=== PATIENT | female | born 1940 | race Caucasian/White ===

== ENCOUNTER 2018-04-21 11:12 | Emergency (ER) | payer MEDICARE ==
[~2018-04-21] VITALS: Ht 160 cm; Wt 73.7 kg
[2018-04-21] MEDS ORDERED: KETOROLAC 30 MG/1 ML IM ONE (12:00)
[2018-04-21] MEDS ORDERED: KETOROLAC 30 MG/1 ML ONE (12:55)
--- NOTE | 2018-04-21 13:14 | NUR ---
Patient/Caregiver given discharge instructions and they have confirmed that they understand the instructions. Patient ambulatory with steady gait. Pt. has her RX. CMS checks remain intact.
[2018-04-21 13:15] VITALS: BP 165/75
== END 2018-04-21 13:17 | disposition home or self-care (01) ==
LOC: ED 12:25
DX: S76.102A Unspecified injury of left quadriceps muscle, fascia and tendon, initial encounter (principal); I10 Essential (primary) hypertension; I48.91 Unspecified atrial fibrillation; Z96.641 Presence of right artificial hip joint; X50.9XXA Other and unspecified overexertion or strenuous movements or postures, initial encounter; Y93.89 Activity, other specified; Y92.89 Other specified places as the place of occurrence of the external cause; Y99.8 Other external cause status
CPT/HCPCS: 29505; 73564; 93971; 96372; 99284; J1885

== ENCOUNTER 2018-07-03 01:24 | Inpatient (IN) | payer MEDICARE ==
[~2018-07-03] VITALS: Ht 161.3 cm; Wt 77.5 kg
[2018-07-03] MEDS ORDERED: ETOMIDATE 20 MG/10 ML ONE ×2 (01:59→04:47)
[2018-07-03] MEDS ORDERED: ETOMIDATE 20 MG/10 ML IVPush ONE (02:00)
[2018-07-03] MEDS ORDERED: FENTANYL PF 100 MCG/2ML IVPush ONE (02:00)
[2018-07-03] MEDS ORDERED: FENTANYL PF 100 MCG/2ML ONE (02:02)
[2018-07-03 02:08] LABS: BASOPHILS # (AUTO) 0.02 x10^3/uL (0-0.1); BASOPHILS % (AUTO) 0 % (0-1); EOSINOPHILS # (AUTO) 0.12 x10^3/uL (0-0.4); EOSINOPHILS % (AUTO) 2 % (1-7); LYMPHOCYTES # (AUTO) 1.44 x10^3/uL (1-3.4); LYMPHOCYTES % (AUTO) 26 % (22-44); MD NO; MEAN CORPUSCULAR HEMOGLOBIN 30.1 pg (27.0-34.8); MEAN CORPUSCULAR HGB CONC 33.5 g/dL (32.4-35.8); MEAN CORPUSCULAR VOLUME 89.7 fL (80-100); MEAN PLATELET VOLUME 9.7 fL (7.4-10.4); MONOCYTES # (AUTO) 0.79 x10^3/uL (0.2-0.8); MONOCYTES % (AUTO) 14 % (2-9); NEUTROPHILS # (AUTO) 3.14 x10^3/uL (1.8-6.8); NEUTROPHILS % (AUTO) 57 % (42-75); PLATELET COUNT 296 x10^3/uL (130-400); RED BLOOD COUNT 4.39 x10^6/uL (3.82-5.3); RED CELL DISTRIBUTION WIDTH 14.3 % (9.6-15.2)
[2018-07-03 02:18] LABS: INTERNATIONAL NORMALIZED RATIO 1.06 (0.93-1.1); PROTHROMBIN TIME 11.1 Seconds (9.6-11.5)
[2018-07-03 02:21] LABS: ALBUMIN 3.3 g/dL (3.4-5.0); ANION GAP 9 mmol/L (5-15); CALCIUM 8.5 mg/dL (8.5-10.1); CHLORIDE 109 mmol/L (98-107); CREATININE 0.93 mg/dL (0.55-1.02)
[2018-07-03 02:25] LABS: FREE T4 (FREE THYROXINE) 1.67 ng/dL (0.76-1.46); TROPONIN I 0.037 ng/mL (0.000-0.045)
--- NOTE | 2018-07-03 02:55 | NUR ---
PT. FULLY RECOVERED FROM PROCEDURAL SEDATION; CHARTING CONTINUED HERE.
[2018-07-03] MEDS ORDERED: AMIODARONE 150 MG in DEXTROSE 5% 100 ML IV ONE (03:00)
[2018-07-03] MEDS ORDERED: AMIODARONE 900 MG in DEXTROSE 5% 482 ML IV PRN (03:00)
[2018-07-03] MEDS ORDERED: FURO20TA3 PO (03:12)
[2018-07-03] MEDS ORDERED: APIX5TAB PO (03:12)
[2018-07-03] MEDS ORDERED: AMIO200T42 PO ×2 (03:12→16:51)
[2018-07-03] MEDS ORDERED: CARV12.52 PO (03:12)
[2018-07-03] MEDS ORDERED: ZOLP5TAB6 PO (03:12)
[2018-07-03] MEDS ORDERED: LOSA100T14 PO (03:12)
[2018-07-03] MEDS ORDERED: POTA10CA PO (03:12)
[2018-07-03] MEDS ORDERED: LEVO125T5 PO (03:12)
--- NOTE | 2018-07-03 03:12 | NUR ---
OLAYINKA AT FOR REPEAT EKG. NSR WITH RATE OF 70'S NOTED ON MONITOR UPON RECHECK. HAD CALLED PHARMACY ABOUT AMIO DRIP; PER DR. LOPEZ WILL HOLD OFF ON THIS FOR NOW.
[2018-07-03] MEDS ORDERED: PLEASE ENTER HEIGHT MC SCH (03:30)
[2018-07-03] MEDS ORDERED: FILTER 0.22 MICRON IV ONE (03:30)
--- NOTE | 2018-07-03 03:50 | NUR ---
PT. ASSISTED TO BS COMMODE; PT. STEADY ON FEET AND REQUIRED ONLY STAND BY ASSISTANCE. PT. AWAITNG BED UPSTAIRS. PT. AWARE OF/AGREEABLE TO PLAN FOR ADMISSION. PT. REMAINS IN NSR ON MONITOR. CALL LIGHT IN REACH. ALL SAFETY MEASURES OBSERVED.
[2018-07-03] MEDS ORDERED: MAGNESIUM SULFATE PMX 2GM/50ML 50 ML IV ONE (04:00)
--- NOTE | 2018-07-03 04:13 | NUR ---
MED REQUEST SENT TO PHARMACY.
[2018-07-03] MEDS ORDERED: MAGNESIUM SULFATE PMX 2GM/50ML 50 ML ONE (04:16)
--- NOTE | 2018-07-03 04:38 | NUR ---
[facility] IN TO EVAL PT. FOR ADMISSION. VS UPDATED. MAG INFUSING PER ORDER. ALL MONITORS REMAIN IN PLACE. NSR ON MONITOR. ALL SAFETY MEASURS OBSERVED. CALL LIGHT IN REACH.
--- NOTE | 2018-07-03 04:53 | NUR ---
REPORT TO FRANKIE WADE. FLOOR READY FOR PT. TRANSPORT.
[2018-07-03] MEDS ORDERED: NITROGLYCERIN 0.4 MG/SPRAY SL PRN (05:30)
[2018-07-03] MEDS ORDERED: NITROGLYCERIN 0.4 MG BOTTLE (25 TABS) SL PRN (05:30)
[2018-07-03] MEDS ORDERED: POTASSIUM CHLORIDE 20 MEQ TAB.ER.PRT PO ONE (05:30)
[2018-07-03] MEDS ORDERED: LABETALOL 5MG/ML, 20ML IVPush PRN (05:30)
[2018-07-03] MEDS ORDERED: LABETALOL 5 MG/ML SYRINGE IVPush PRN (05:30)
[2018-07-03 05:42] VITALS: BP 125/73
--- NOTE | 2018-07-03 05:45 | NUR ---
20MG VILE OF ETOMADATE WALKED BACK TO PHARMACY OMNICELL WAS FULL WHEN THIS RN WENT TO RETURN UNUSED VILE AFTER PROCEDURE. 4MG(2ML) OF THE OTHER 20MG VILE WASTED WITH JUANA Jackson RN.
[2018-07-03] MEDS ORDERED: LEVOTHYROXINE 125 MCG TABLET PO SCH (06:00)
[2018-07-03 06:56] LABS: TROPONIN I 0.298 ng/mL (0.000-0.045)
[2018-07-03 07:59] VITALS: BP 136/72
[2018-07-03] MEDS ORDERED: OMEP-110 PO (08:45)
[2018-07-03] MEDS ORDERED: FLUO20CA19 PO (08:45)
[2018-07-03] MEDS ORDERED: FUROSEMIDE 40 MG TABLET PO SCH (09:00)
[2018-07-03] MEDS ORDERED: AMIODARONE 200 MG TABLET PO SCH (09:00)
[2018-07-03] MEDS ORDERED: CARVEDILOL 12.5 MG TABLET PO SCH (09:00)
[2018-07-03] MEDS ORDERED: LOSARTAN 50MG TABLET PO SCH (09:00)
[2018-07-03] MEDS ORDERED: APIXABAN 5 MG TABLET PO SCH (09:00)
[2018-07-03] MEDS ORDERED: POTASSIUM CHLORIDE 10 MEQ TABLET.ER PO SCH (09:00)
[2018-07-03 14:00] VITALS: BP 134/70
[2018-07-03 16:11] LABS: TROPONIN I 0.339 ng/mL (0.000-0.045)
[2018-07-03] MEDS ORDERED: ACETAMINOPHEN 325 MG TABLET PO ONE (17:00)
[2018-07-03] MEDS ORDERED: ZOLPIDEM 5MG TABLET PO SCH (21:00)
== END 2018-07-03 18:32 | disposition home or self-care (01) | DRG 308 ==
LOC: ED 01:34 → EDIP 03:41 → 5SO 05:06
PROVIDERS: ADMIT Family Medicine; ATTEND Family Medicine
PROC: 5A2204Z Restoration of Cardiac Rhythm, Single (ICD-10-PCS; principal; 2018-07-03)
DX: I48.91 Unspecified atrial fibrillation (principal); I50.33 Acute on chronic diastolic (congestive) heart failure; I11.0 Hypertensive heart disease with heart failure; E03.9 Hypothyroidism, unspecified; E78.5 Hyperlipidemia, unspecified; I45.4 Nonspecific intraventricular block; M19.90 Unspecified osteoarthritis, unspecified site; E83.42 Hypomagnesemia; E87.6 Hypokalemia; F32.9 Major depressive disorder, single episode, unspecified; I25.2 Old myocardial infarction; Z79.01 Long term (current) use of anticoagulants; Z79.899 Other long term (current) drug therapy; Z85.3 Personal history of malignant neoplasm of breast; Z95.5 Presence of coronary angioplasty implant and graft
CPT/HCPCS: 36415; 71045; 80048; 82040; 83735; 83880; 84439; 84443; 84484; 85025; 85610; 92960; 93005; 96374; 96375; 99152; 99291; G0378; J3010; J3475

== ENCOUNTER 2018-07-17 08:51 | Emergency (ER) | payer MEDICARE ==
[~2018-07-17] VITALS: Ht 160 cm; Wt 72.8 kg
[~2018-07-17 08:51] MED LIST: AMIO200T42 PO; APIX5TAB PO; CARV12.52 PO; FLUO20CA19 PO; FURO20TA3 PO; LEVO125T5 PO; LOSA100T14 PO; OMEP-110 PO; POTA10CA PO; ZOLP5TAB6 PO
--- NOTE | 2018-07-17 09:10 | NUR ---
CONTACT WITH PT: 78 YR OLD FEMALE HERE WITH C/O "I FELT LIKE I HAD AN ATTACK OF AFIB THIS AM. WAS HERE 2 WEEKS AGO FOR AFIB. I COULD FEEL IT GOING WACKO, SWEAT, NAUSEA, LIGHT HEADED." CURRENTLY NOT FEELING THAT BAD" AFIB PER MONITOR. AUTO BP, PULSE OX IN PLACE. PTS SON AT BEDSIDE.
[2018-07-17] MEDS ORDERED: LORA0.5T PO (09:26)
[2018-07-17] MEDS ORDERED: PROPOFOL 10 MG/ML, 20ML ONE (09:50)
--- NOTE | 2018-07-17 10:09 | NUR ---
SET PT UP FOR CARDIOVERSION. PADS ON, CRASH CART IN ROOM. DISCUSSED WITH DR. QUINTANA READY FOR PROCEDURE
[2018-07-17] MEDS ORDERED: SACU1TAB MT (10:13)
[2018-07-17 10:18] LABS: MEAN CORPUSCULAR HEMOGLOBIN 29.3 pg (27.0-34.8); MEAN CORPUSCULAR HGB CONC 32.8 g/dL (32.4-35.8); MEAN CORPUSCULAR VOLUME 89.3 fL (80-100); MEAN PLATELET VOLUME 9.8 fL (7.4-10.4); PLATELET COUNT 317 x10^3/uL (130-400); RED BLOOD COUNT 4.62 x10^6/uL (3.82-5.3); RED CELL DISTRIBUTION WIDTH 14.6 % (9.6-15.2)
[2018-07-17 10:23] LABS: ALANINE AMINOTRANSFERASE 36 U/L (12-78); ALBUMIN 3.3 g/dL (3.4-5.0); ANION GAP 6 mmol/L (5-15); CALCIUM 8.8 mg/dL (8.5-10.1); CHLORIDE 105 mmol/L (98-107); INTERNATIONAL NORMALIZED RATIO 1.02 (0.93-1.1); PROTHROMBIN TIME 10.7 Seconds (9.6-11.5)
[2018-07-17 10:27] LABS: ALKALINE PHOSPHATASE 91 U/L (45-117); TOTAL PROTEIN 6.9 g/dL (6.4-8.2); TROPONIN I < 0.015 ng/mL (0.000-0.045)
--- NOTE | 2018-07-17 10:35 | NUR ---
UP TO COMMODE, BACK TO BED. VERBALIZED NO NEEDS AT THIS TIME
[2018-07-17 10:42] LABS: BASOPHILS # (AUTO) 0.02 x10^3/uL (0-0.1); BASOPHILS % (AUTO) 0 % (0-1); EOSINOPHILS % (AUTO) 2 % (1-7); LYMPHOCYTES # (AUTO) 1.19 x10^3/uL (1-3.4); LYMPHOCYTES % (AUTO) 23 % (22-44); MD SCAN; MONOCYTES # (AUTO) 0.76 x10^3/uL (0.2-0.8); MONOCYTES % (AUTO) 14 % (2-9); NEUTROPHILS # (AUTO) 3.23 x10^3/uL (1.8-6.8); NEUTROPHILS % (AUTO) 61 % (42-75)
--- NOTE | 2018-07-17 10:50 | NUR ---
CARDIOVERSION COMPLETED, PLEASE SEE INTRAPROCEDURAL SEDATION.
[2018-07-17] MEDS ORDERED: SODIUM CHLORIDE FLUSH 10ML SYR IVF ONE (11:00)
--- NOTE | 2018-07-17 11:08 | NUR ---
PT SLEEPING, O2 AT 2LNC, 96%, CARDIAC MONTIOR ON HR REG AT 54-56.
[2018-07-17 12:04] VITALS: BP 145/69
--- NOTE | 2018-07-17 12:04 | NUR ---
Patient/Caregiver given discharge instructions and they have confirmed that they understand the instructions. Patient ambulatory with steady gait.
== END 2018-07-17 12:06 | disposition home or self-care (01) ==
LOC: ED 10:06
DX: I48.0 Paroxysmal atrial fibrillation (principal); E03.9 Hypothyroidism, unspecified; I50.9 Heart failure, unspecified; E78.5 Hyperlipidemia, unspecified; I11.0 Hypertensive heart disease with heart failure
CPT/HCPCS: 36415; 80053; 83605; 84443; 84484; 85025; 85610; 85730; 92960; 93005; 99285

== ENCOUNTER 2018-09-19 14:04 | Inpatient (IN) | payer MEDICARE ==
[~2018-09-19] VITALS: Ht 160 cm; Wt 72.1 kg
[~2018-09-19 14:04] MED LIST changes: +LORA0.5T PO; +SACU1TAB MT
--- NOTE | 2018-09-19 14:35 | NUR ---
pt to room at this time. pt given gown
--- NOTE | 2018-09-19 14:50 | NUR ---
PT WITH C/O "FEELING SICK WITH CP ALL DAY YESTERDAY. I WAS JUST SO SICK I LAID IN BED ALL DAY." PT DENIES CP AT THIS TIME. PT STATES SHE "JUST FEELS SO WEAK." PER PT REPORT, SHE HAS BEEN SLEEPING UP RIGHT THE LAST FEW NIGHTS. DR COLEMAN AT BEDSIDE TO EXAMINE PT. ATICIPATE ADMIT TO HOSPITAL. PT DOES NOT WISH TO BE ADMITTED, STATES "OH PLEASE NO". PT ON CARDIAC MONTIOR, NIBP, CONTINUOUS PULSE OX. EKG COMPLETED. PT DENIES N/V, MUNOZ, CP AT THIS TIME.
[2018-09-19 15:01] LABS: BASOPHILS # (AUTO) 0.02 x10^3/uL (0-0.1); BASOPHILS % (AUTO) 0 % (0-1); EOSINOPHILS # (AUTO) 0.12 x10^3/uL (0-0.4); EOSINOPHILS % (AUTO) 2 % (1-7); LYMPHOCYTES # (AUTO) 1.35 x10^3/uL (1-3.4); LYMPHOCYTES % (AUTO) 21 % (22-44); MD NO; MEAN CORPUSCULAR HEMOGLOBIN 29.5 pg (27.0-34.8); MEAN CORPUSCULAR HGB CONC 32.2 g/dL (32.4-35.8); MEAN CORPUSCULAR VOLUME 91.6 fL (80-100); MEAN PLATELET VOLUME 8.9 fL (7.4-10.4); MONOCYTES # (AUTO) 0.73 x10^3/uL (0.2-0.8); MONOCYTES % (AUTO) 11 % (2-9); NEUTROPHILS # (AUTO) 4.32 x10^3/uL (1.8-6.8); NEUTROPHILS % (AUTO) 66 % (42-75); PLATELET COUNT 312 x10^3/uL (130-400); RED BLOOD COUNT 4.46 x10^6/uL (3.82-5.3); RED CELL DISTRIBUTION WIDTH 14.6 % (9.6-15.2)
[2018-09-19 15:10] LABS: ANION GAP 7 mmol/L (5-15); CALCIUM 8.8 mg/dL (8.5-10.1); CHLORIDE 103 mmol/L (98-107); CREATININE 0.77 mg/dL (0.55-1.02)
[2018-09-19 15:11] LABS: ALBUMIN 3.3 g/dL (3.4-5.0)
--- NOTE | 2018-09-19 15:24 | NUR ---
PIV STARTED BY TURKEY PINNER, NO FURTHER NEEDS AT THIS TIME. AWAITING ADMIT
[2018-09-19] MEDS ORDERED: LEVO100T5 PO (16:19)
--- NOTE | 2018-09-19 16:20 | NUR ---
PT REQUESTING FOR ME TO CALL HER SON JUAQUIN TO UPDATE ON PT CONDITION. NUMBER RECIEVED FROM PT, WILL CALL TO UPDATE SON. NO OTHER NEEDS AT THIS TIME.
[2018-09-19] MEDS ORDERED: hydrALAzine 20 MG/ML, 1ML IV PRN (17:00)
[2018-09-19] MEDS ORDERED: LORazepam 0.5MG TABLET PO PRN (17:00)
[2018-09-19] MEDS ORDERED: MAALOX/HYOSCYAMINE/LIDOCAINE 45 ML BTL PO PRN (17:00)
[2018-09-19 17:17] LABS: ALBUMIN 3.4 g/dL (3.4-5.0); BILIRUBIN, DIRECT 0.1 mg/dL (0.1-0.2)
[2018-09-19 17:26] LABS: BILIRUBIN,INDIRECT 0.2 mg/dL (0.0-2.0); BILIRUBIN,TOTAL 0.3 mg/dL (0.2-1.0); THYROID STIMULATING HORMONE 0.379 mIU/L (0.358-3.740); TOTAL PROTEIN 7.6 g/dL (6.4-8.2)
[2018-09-19] MEDS ORDERED: ONDANSETRON 2MG/ML, 2ML IVPush PRN (17:30)
[2018-09-19] MEDS ORDERED: NITROGLYCERIN 0.4 MG BOTTLE (25 TABS) SL PRN (17:30)
[2018-09-19] MEDS ORDERED: NITROGLYCERIN 0.4 MG/SPRAY SL PRN (17:30)
[2018-09-19] MEDS ORDERED: ACETAMINOPHEN 325 MG TABLET PO PRN (17:30)
[2018-09-19] MEDS ORDERED: morphine SULFATE 10 MG/ML, 1ML IVPush PRN (17:30)
[2018-09-19] MEDS ORDERED: ONDANSETRON ODT 4 MG PO PRN (17:30)
[2018-09-19] MEDS ORDERED: DOCUSATE 100 MG CAPSULE PO PRN (17:30)
--- NOTE | 2018-09-19 18:23 | NUR ---
PT REQUESTING FOOD, WILL CALL [employer] TO GET A TRAY. PT ANXIOUS ABOUT ADMISSION TO FLOOR NO ROOM AVAILABLE YET. WILL UPDATE PT ROOM IS AVAILABLE, NO OTHER COMPLAINTS AT THIS TIME.
--- NOTE | 2018-09-19 18:29 | NUR ---
DIET TRAY ORDERED
--- NOTE | 2018-09-19 18:46 | NUR ---
REPORT GIVEN TO RAY DAVID
--- NOTE | 2018-09-19 18:48 | NUR ---
REPORT RECEIVED FROM [facility]TE/LEON DAVID.
--- NOTE | 2018-09-19 19:06 | NUR ---
PT'S SON'S NUMBER [phone]
--- NOTE | 2018-09-19 19:35 | NUR ---
pt provided meal tray at this time.
--- NOTE | 2018-09-19 19:45 | NUR ---
report given to mehran hernandez. all questions answered.
[2018-09-19] MEDS ORDERED: ZOLPIDEM 5MG TABLET PO SCH (21:00)
[2018-09-19] MEDS ORDERED: FAMOTIDINE 20 MG TABLET PO SCH (21:00)
[2018-09-19] MEDS: FLUOXETINE HCL 20 MG CAPSULE PO SCH (21:12)
[2018-09-19] MEDS: PANTOPROZOLE 40MG TABLET PO SCH (21:12)
[2018-09-19] MEDS: FUROSEMIDE 20 MG TABLET PO SCH (21:12)
[2018-09-19 21:17] VITALS: BP 162/75
[2018-09-19 22:08] LABS: MICROSCOPIC NOT IND
[2018-09-19 22:12] LABS: CULTURE INDICATED? NO
[2018-09-20 02:29] VITALS: BP 163/69
[2018-09-20 05:32] LABS: BASOPHILS # (AUTO) 0.03 x10^3/uL (0-0.1); BASOPHILS % (AUTO) 1 % (0-1); EOSINOPHILS # (AUTO) 0.18 x10^3/uL (0-0.4); EOSINOPHILS % (AUTO) 4 % (1-7); LYMPHOCYTES # (AUTO) 1.26 x10^3/uL (1-3.4); LYMPHOCYTES % (AUTO) 27 % (22-44); MD NO; MEAN CORPUSCULAR HEMOGLOBIN 29.4 pg (27.0-34.8); MEAN CORPUSCULAR HGB CONC 32.4 g/dL (32.4-35.8); MEAN CORPUSCULAR VOLUME 90.8 fL (80-100); MONOCYTES % (AUTO) 15 % (2-9); NEUTROPHILS # (AUTO) 2.46 x10^3/uL (1.8-6.8); NEUTROPHILS % (AUTO) 53 % (42-75); PLATELET COUNT 307 x10^3/uL (130-400); RED CELL DISTRIBUTION WIDTH 14.6 % (9.6-15.2)
[2018-09-20 05:44] LABS: ALBUMIN 3.1 g/dL (3.4-5.0); ANION GAP 7 mmol/L (5-15); CALCIUM 8.7 mg/dL (8.5-10.1); CHLORIDE 105 mmol/L (98-107)
[2018-09-20 05:47] LABS: ALANINE AMINOTRANSFERASE 24 U/L (12-78); ALKALINE PHOSPHATASE 87 U/L (45-117); BILIRUBIN,TOTAL 0.7 mg/dL (0.2-1.0); CHOLESTEROL, TOTAL 255 mg/dL (140-239); CREATININE 0.76 mg/dL (0.55-1.02); HDL CHOL % 20 % (28-40); HDL CHOLESTEROL (DIRECT) 51 mg/dL (40-60); LDL CHOLESTEROL,CALCULATED 192 mg/dL (54-169); LDL/HDL RATIO 3.8 (0.5-3.0); TOTAL PROTEIN 7.1 g/dL (6.4-8.2); TRIGLYCERIDES 62 mg/dL (50-200); VLDL CHOLESTEROL 12 mg/dL (0-25)
[2018-09-20] MEDS ORDERED: ASPIRIN 81 MG TABLET EC PO SCH (06:00)
[2018-09-20 06:31] VITALS: BP 158/68
[2018-09-20] MEDS ORDERED: AMIODARONE 200 MG TABLET PO SCH (09:00)
[2018-09-20] MEDS ORDERED: SACUBITRIL/VALSARTAN 24MG-26MG TAB PO SCH (09:00)
[2018-09-20] MEDS ORDERED: LEVOTHYROXINE 100 MCG TABLET PO SCH (09:00)
[2018-09-20] MEDS ORDERED: CARVEDILOL 12.5 MG TABLET PO SCH (09:00)
[2018-09-20] MEDS ORDERED: APIXABAN 5 MG TABLET PO SCH (09:00)
[2018-09-20] MEDS ORDERED: POTASSIUM CHLORIDE 10 MEQ TABLET.ER PO SCH (09:00)
[2018-09-20] MEDS: FLUOXETINE HCL 20 MG CAPSULE PO SCH (09:13)
[2018-09-20] MEDS: PANTOPROZOLE 40MG TABLET PO SCH (09:13)
[2018-09-20] MEDS: FUROSEMIDE 20 MG TABLET PO SCH (09:13)
[2018-09-20] MEDS ORDERED: SUCR1TAB33 PO (09:25)
[2018-09-20] MEDS ORDERED: ONDA4TAB13 PO (09:25)
[2018-09-20] MEDS ORDERED: OMEP-110 PO (09:25)
== END 2018-09-20 13:16 | disposition home or self-care (01) | DRG 392 ==
LOC: ED 15:58 → EDIP 15:59 → ED 16:00 → 5SO 19:59 → DCLOUNGE 09-20 12:55
PROVIDERS: ADMIT Internal Medicine; ATTEND Internal Medicine
DX: K21.9 Gastro-esophageal reflux disease without esophagitis (principal); E03.9 Hypothyroidism, unspecified; E78.5 Hyperlipidemia, unspecified; I11.0 Hypertensive heart disease with heart failure; I48.91 Unspecified atrial fibrillation; I50.9 Heart failure, unspecified; Z79.01 Long term (current) use of anticoagulants
CPT/HCPCS: 0399T; 36415; 71045; 76700; 80048; 80053; 80061; 80076; 81003; 82040; 83690; 83735; 83880; 84443; 84484; 85025; 93005; 93306; 99285; G0378

== ENCOUNTER 2018-11-05 09:43 | Outpatient (CLI) | payer MEDICARE | END 2018-11-05 23:59 | disposition home or self-care (01) | LOC: CFH 09:43 | PROVIDERS: ATTEND Nurse Practitioner Family | DX: N64.4 Mastodynia (principal) | CPT/HCPCS: 77065; G0279 ==

== ENCOUNTER 2019-09-15 10:20 | Outpatient (CLI) | payer MEDICARE ==
[~2019-09-15 10:20] MED LIST changes: +LEVO100T5 PO; +ONDA4TAB13 PO; +SUCR1TAB33 PO
== END 2019-09-15 23:59 | disposition home or self-care (01) ==
LOC: CFH 10:20
PROVIDERS: ATTEND Internal Medicine Cardiovascular Disease
DX: Z51.81 Encounter for therapeutic drug level monitoring (principal); E03.9 Hypothyroidism, unspecified; E78.00 Pure hypercholesterolemia, unspecified; I34.0 Nonrheumatic mitral (valve) insufficiency; I48.0 Paroxysmal atrial fibrillation; I42.9 Cardiomyopathy, unspecified; I50.22 Chronic systolic (congestive) heart failure; I11.0 Hypertensive heart disease with heart failure; Z79.01 Long term (current) use of anticoagulants
CPT/HCPCS: 71046

== ENCOUNTER → 2019-10-29 | Outpatient (CLI) | payer MEDICARE ==
[~2019-10-29] MED LIST changes: +REGADENOSON 0.4 MG/5 ML SYRINGE ONE
== END | disposition home or self-care (01) ==
LOC: CFH 07:08
PROVIDERS: ATTEND Internal Medicine Cardiovascular Disease
DX: I08.8 Other rheumatic multiple valve diseases (principal); I42.9 Cardiomyopathy, unspecified; I10 Essential (primary) hypertension; I48.91 Unspecified atrial fibrillation
CPT/HCPCS: 78452; 93017; 93306; A9502; J2785

== ENCOUNTER → 2019-12-22 | Outpatient (CLI) | payer MEDICARE ==
[~2019-12-22] MED LIST changes: -REGADENOSON 0.4 MG/5 ML SYRINGE ONE
[2019-12-22 13:14] LABS: HCT (SEDRATE) 41.1 % (34.6-47.8)
[2019-12-22 13:28] LABS: FOLATE LEVEL 10.9 ng/mL (3.1-17.5)
== END | disposition home or self-care (01) ==
LOC: LAB 12:25
PROVIDERS: ATTEND Psychiatry & Neurology Neurology
DX: R41.3 Other amnesia (principal)
CPT/HCPCS: 36415; 82175; 82390; 82607; 82746; 83655; 83825; 84443; 85651; 86038; 86592

== ENCOUNTER → 2019-12-23 | Outpatient (CLI) | payer MEDICARE ==
[~2019-12-23] MED LIST changes: +OMNIPAQUE 350 MG/ML, 150 ML BOTTLE ONE
== END | disposition home or self-care (01) ==
LOC: CFH 13:28
PROVIDERS: ATTEND Student in an Organized Health Care Education/Training Program
DX: N39.0 Urinary tract infection, site not specified (principal)
CPT/HCPCS: 74178; Q9967

== ENCOUNTER → 2020-06-04 | Outpatient (CLI) | payer MEDICARE ==
[~2020-06-04] MED LIST changes: -OMNIPAQUE 350 MG/ML, 150 ML BOTTLE ONE
[2020-06-04 12:19] LABS: BASOPHILS % (AUTO) 1 % (0-1); EOSINOPHILS % (AUTO) 2 % (1-7); LYMPHOCYTES % (AUTO) 28 % (22-44); MEAN CORPUSCULAR HEMOGLOBIN 32.6 pg (27.0-34.8); MEAN CORPUSCULAR HGB CONC 33.9 g/dL (32.4-35.8); MEAN PLATELET VOLUME 9.1 fL (7.4-10.4); MONOCYTES % (AUTO) 13 % (2-9); NEUTROPHILS % (AUTO) 57 % (42-75); PLATELET COUNT 298 x10^3/uL (130-400); RED BLOOD COUNT 3.91 x10^6/uL (3.82-5.3); RED CELL DISTRIBUTION WIDTH 13.6 % (9.6-15.2)
[2020-06-04 12:28] LABS: ALANINE AMINOTRANSFERASE 41 U/L (12-78); ANION GAP 8 mmol/L (5-15); CALCIUM 8.9 mg/dL (8.5-10.1); CHLORIDE 104 mmol/L (98-107); CHOLESTEROL, TOTAL 164 mg/dL (140-239)
[2020-06-04 12:31] LABS: MD NO
[2020-06-04 12:39] LABS: ALKALINE PHOSPHATASE 75 U/L (45-117); BILIRUBIN,TOTAL 0.7 mg/dL (0.2-1.0); CHOL/HDL RATIO 3.2; HDL CHOL % 31 % (28-40); HDL CHOLESTEROL (DIRECT) 51 mg/dL (40-60); LDL CHOLESTEROL,CALCULATED 93 mg/dL (54-169); LDL/HDL RATIO 1.8 (0.5-3.0); TOTAL PROTEIN 7.6 g/dL (6.4-8.2); TRIGLYCERIDES 98 mg/dL (50-200); VLDL CHOLESTEROL 20 mg/dL (0-25)
[2020-06-04 12:58] LABS: FREE T4 (FREE THYROXINE) 1.62 ng/dL (0.76-1.46)
== END | disposition home or self-care (01) ==
LOC: LAB 11:43
PROVIDERS: ATTEND Student in an Organized Health Care Education/Training Program
DX: I50.9 Heart failure, unspecified (principal); E03.9 Hypothyroidism, unspecified; E78.5 Hyperlipidemia, unspecified
CPT/HCPCS: 36415; 80053; 80061; 84439; 84443; 85025

== ENCOUNTER → 2020-06-27 | Outpatient (CLI) | payer MEDICARE ==
[2020-06-27 19:28] LABS: HCT (SEDRATE) 38.3 % (34.6-47.8)
[2020-06-27 19:38] LABS: MICROSCOPIC AUTO
[2020-06-27 19:39] LABS: T4 (THYROXINE) 15.4 mcg/dL (4.8-13.9)
[2020-06-28 17:54] LABS: ANA SCREEN POSITIVE (Negative); ANTI-NUCLEAR ANTIBODY PATTERN HOMOGENOUS
== END | disposition home or self-care (01) ==
LOC: LAB 18:49
PROVIDERS: ATTEND Student in an Organized Health Care Education/Training Program
DX: E03.9 Hypothyroidism, unspecified (principal); N17.9 Acute kidney failure, unspecified; M79.643 Pain in unspecified hand
CPT/HCPCS: 36415; 81001; 84436; 84442; 84443; 84481; 85651; 86038; 86039; 86200; 86430

== ENCOUNTER → 2020-08-25 | Outpatient (CLI) | payer MEDICARE ==
[2020-08-25 14:39] LABS: T4 (THYROXINE) 15.1 mcg/dL (4.8-13.9)
[2020-08-25 14:47] LABS: FOLATE LEVEL > 20.0 ng/mL (3.1-17.5)
== END | disposition home or self-care (01) ==
LOC: LAB 13:23
PROVIDERS: ATTEND Student in an Organized Health Care Education/Training Program
DX: R41.3 Other amnesia (principal); E03.9 Hypothyroidism, unspecified
CPT/HCPCS: 36415; 82607; 82746; 84436; 84443; 84480; 86592